=== PATIENT | male | born 1990 | race Caucasian/White ===

== ENCOUNTER 2016-12-27 18:55 | Emergency (ER) | payer BC ==
[2016-12-27 19:20] VITALS: BP 139/83
--- NOTE | 2016-12-27 19:29 | EDM.PDOC ---
ED HPI GENERAL MEDICAL PROBLEM - General Chief Complaint: ENT Problem Stated Complaint: POSSIBLE STREP THROAT Time Seen by Provider: 12/27/16 19:17 Source of Information: Reports: Patient History Limitations: Reports: No Limitations - History of Present Illness INITIAL COMMENTS - FREE TEXT/NARRATIVE: The patient presents with sore throat, fever, chills and cough. This has been going on for a few days. He has a history of strep throat. He has swelling and redness of his tonsils. He has not been around anyone who is sick. Onset: Sudden Duration: Day(s): (2) Location: Reports: Other (Throat) Quality: Reports: Sharp Severity: Moderate Improves with: Reports: None Worsens with: Reports: None Associated Symptoms: Reports: Cough, Fever/Chills Throat Pain Score (Numeric/FACES): 7 - Related Data Home Meds: Home Meds Amoxicillin 1,000 mg PO BID #40 tab 12/27/16 [Rx] Codeine/Promethazine [Phenergan with Codeine] 5 - 10 ml PO Q6HR PRN #300 ml 08/03 [Rx] ED ROS ENT - Review of Systems Review Of Systems: See Below Constitutional: Reports: Fever, Chills HEENT: Reports: Throat Pain, Throat Swelling Respiratory: Reports: Cough Cardiovascular: Reports: No Symptoms Endocrine: Reports: No Symptoms GI/Abdominal: Reports: No Symptoms : Reports: No Symptoms Musculoskeletal: Reports: No Symptoms Skin: Reports: No Symptoms Neurological: Reports: No Symptoms ED EXAM, ENT - Physical Exam Exam: See Below Exam Limited By: No Limitations General Appearance: Alert, No Apparent Distress Ears: Normal External Exam, Normal Canal, TM Erythema (on the left) Nose: Normal Inspection Mouth/Throat: Tonsillar Erythema, Tonsillar Exudates, Tonsillar Swelling Head: Atraumatic, Normocephalic Neck: Normal Inspection, Lymphadenopathy (R) Respiratory/Chest: No Respiratory Distress, Lungs Clear, Normal Breath Sounds Cardiovascular: Regular Rate, Rhythm, No Edema, No Murmur GI/Abdominal: Soft, Non-Tender, No Organomegaly, No Mass Back: Normal Inspection Course - Vital Signs Last Recorded V/S: Last Vital Signs Temp 99.6 F 12/27/16 19:17 Pulse 96 12/27/16 19:17 Resp 16 12/27/16 19:17 BP 139/83 12/27/16 19:17 Pulse Ox 99 12/27/16 19:17 Departure - Departure Time of Disposition: 19:30 Disposition: Home, Self-Care 01 Condition: good Clinical Impression: Tonsillitis - Discharge Information Prescriptions: Codeine/Promethazine [Phenergan with Codeine] 5 - 10 ml PO Q6HR PRN #300 ml PRN Reason: Cough Amoxicillin 1,000 mg PO BID #40 tab Referrals: Rosey Coe PA-C [Physician Community Relations Assistant] - 1 Week Forms: ED Department Discharge Additional Instructions: Take the amoxicillin 2 times per day for 10 days. Take the phenergan with codeine 5 to 10ml by mouth for cough and pain. Please return if you are worse.
== END 2016-12-27 19:57 | disposition home or self-care (01) ==
LOC: JD.ED 18:55
DX: J03.90 Acute tonsillitis, unspecified (principal)
CPT/HCPCS: 99283